=== PATIENT | male | born 1980 | race Caucasian/White ===

== ENCOUNTER 2019-06-09 00:01 | Emergency (ER) | payer MEDICARE, SELFPAY ==
[2019-06-09 00:02] VITALS: BP 140/94; PULSE 90; RESP 16; TEMP 36.6; O2SAT 100; BMI 23.5
--- NOTE | 2019-06-09 00:13 | ED_ITS ---
HPI - Headache General: Chief Complaint: Headache Stated Complaint: migraine/dental pain Time Seen by Provider: 06/09/19 00:13 History of Present Illness: HPI Narrative: Patient is a 38-year-old male who comes to the ED with a migraine. Patient has a past medical history of migraines. Patient describes this migraine like other past migraines. He has photophobia and the migraine is retro-orbital on the left eye. He rates it a 9.5 out of 10. He denies any other neurological symptoms such as numbness or tingling to extremities or any weakness to her extremities. Denies any vision changes. Associated symptoms: Deny chest pain, fever(s), nausea, rash or vomiting Review of Systems Const: Denies: fever, chills or fatigue Eyes: Denies: change in vision or eye discomfort ENMT: Reports: dental pain; Denies: throat pain, painful swallowing, nasal discharge or nasal congestion Card: Denies: chest pain, palpitations, edema, swelling of feet/ankles, shortness of breath on exertion or shortness of breath when lying down Resp: Denies: shortness of breath, productive cough or non-productive cough GI: Denies: abdominal pain, nausea, vomiting, diarrhea, constipation or blood in stool : Denies: flank pain, difficulty urinating, painful urination or blood in urine Musc: Denies: neck pain, back pain or extremity swelling Skin/Breast: Denies: rash or new lesion Neuro: Reports: headache; Denies: numbness in extremities or weakness in extremities PFS ED PFSH: Social History Smoking and tobacco status: current every day smoker Physical Exam Narrative: EXAM NARRATIVE: Patient is a 38-year-old male who is lying in a dark room with his sunglasses on as I entered the room. Const: COMMON NORMALS: oriented x3 HENMT: COMMON NORMALS: normocephalic HEAD & SCALP: normocephalic MOUTH: oral and palatal mucosa normal TEETH & GINGIVA: Yes other (pt has a broken tooth. tooth #15) THROAT: posterior oropharynx normal and uvula midline Eye: COMMON NORMALS: PERRL and EOMs intact bilaterally PUPIL: Yes PERRL Neck/C-Spine: COMMON NORMALS: supple GENERAL: Yes normal visual inspection Resp: COMMON NORMALS: normal respiratory effort, no retractions, no use of accessory muscles and clear to auscultation bilaterally AUSCULTATION: clear to auscultation bilaterally Cardio: COMMON NORMALS: regular rate, regular rhythm, S1 normal heart sound, S2 normal heart sound, no gallops, no clicks, no murmurs and peripheral pulses 2+ throughout RATE: regular rate RHYTHM: regular rhythm HEART SOUNDS: S1 normal and S2 normal PERIPHERAL PULSES: pulses 2+ throughout GI: COMMON NORMALS: normal to inspection, nondistended, normoactive bowel sounds, soft to palpation, non-tender and no masses PALPATION: Yes soft : COMMON NORMALS: Yes no CVA tenderness BLADDER/KIDNEY EXAM: Yes no CVA tenderness Back/Pelvis: COMMON NORMALS: no CVA tenderness Extremity: COMMON NORMALS: normal to inspection Neuro: COMMON NORMALS: oriented x3, CN's II-XII intact bilaterally, moves all extremities, no focal motor deficits and no sensory deficits noted SENSORY EXAM: Yes extremities (intact) MOTOR EXAM: strength 5/5 throughout Skin: COMMON NORMALS: no rashes or lesions noted GENERAL SKIN EXAM: no rashes or lesions noted and dry skin Course Reevaluation(s): Reevaluation #1: After treatment here in the ED patient's migraine was rated at a 2 out of 10. Initial migraine rating before treatment was 9.5 out of 10. Time: 00:50 Vital Signs: Vital signs: Vital Signs Temperature 97.8 F 06/09/19 00:02 Pulse Rate 62 06/09/19 01:28 Respiratory Rate 16 06/09/19 00:02 Blood Pressure 111/73 06/09/19 01:28 Pulse Oximetry 100 06/09/19 01:28 Discharge Plan Discharge Patient Disposition: Home, Self-Care Clinical Impression: Toothache Migraine Qualifiers: Migraine type: without aura Status migrainosus presence: without status migrainosus Intractability: not intractable Qualified Code(s): G43.009 - Migraine without aura, not intractable, without status migrainosus Condition: Stable Prescriptions: No Action No Known Home Medications RF: 0 Discharge Orders: Discharge Order (Routine); Ordered 06/09/19 Ordered By: Jose Vasquez Referrals: Tomas Shaikh DO [Primary Care Provider] - Discharge Diet: Regular Discharge Activity: Resume usual activity Patient Instructions: Migraine Headache (ED) Activity Restrictions/Additional Instructions: Follow-up with your PCP in 7 days for reevaluation. Drink plenty fluids and stay hydrated. You can take [id number] ibuprofen or Tylenol for any headaches. Also call the dentist to set up an appointment for toothache. 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
[2019-06-09] MEDS: dexamethasone 10 mg/mL INJ IVP (00:28)
[2019-06-09] MEDS: ketorolac 30 mg/mL INJ IVP (00:29)
[2019-06-09] MEDS: sodium chloride 0.9% 1,000 ML 999 ML IV (00:29)
[2019-06-09] MEDS: diphenhydrAMINE 50 mg/mL SDV 1mL 25 MG IVP (00:29)
[2019-06-09 01:28] VITALS: BP 111/73; PULSE 62; O2SAT 100
== END 2019-06-09 01:28 | disposition home or self-care (01) ==
PROVIDERS: Emergency Provider Physician Assistant; Family Provider Family Medicine; PCP Family Medicine
DX: K08.89 Other specified disorders of teeth and supporting structures (principal); G43.009 Migraine without aura, not intractable, without status migrainosus
CPT/HCPCS: 12345; 96360; 96361; 96374; 96375; 99283; J1100; J1200; J1885; J7030

== ENCOUNTER 2021-03-05 09:00 | Emergency (ER) | payer MEDICARE, SELFPAY ==
[2021-03-05 09:07] VITALS: BP 135/78; PULSE 79; RESP 18; TEMP 36.8; O2SAT 98; BMI 27.2
[2021-03-05 09:30] VITALS: BP 116/62; PULSE 74; RESP 16; TEMP 36.8; O2SAT 99
--- NOTE | 2021-03-05 09:38 | CT_ITS ---
WS: [id number] CT ABDOMEN PELVIS TECHNIQUE: Contrast-enhanced CT of the abdomen and pelvis with coronal and sagittal reformatted image s. CLINICAL INFORMATION: right lower quadrant abdominal pain COMPARISON: None. DLP: 1550.[address] scans at [facility] use at least one of these dose optimization techniques: automated e xposure control; mA and/or kV adjustment per patient size (includes targeted exams where dose is matc hed to clinical indication); or iterative reconstruction. FINDINGS: Diffuse fatty infiltration liver. Normal spleen. Normal GE junction. Lung bases are well aerated.Norm al portal vein and splenic vein. Normal pancreas. Adrenal glands are normal. Normal renal parenchymal enhancement. Small bilateral renal cysts. No hydronephrosis in either kidney. Normal caliber abdominal aorta. Normal sigmoid colon. No evidence of high-grade small or large bowel obstruction. Normal appendix in the right lower quadrant. No evidence of acute appendicitis. No abdominal or pelvi c lymphadenopathy. Mild lumbar curve. CT/CT abdomen pelvis w con* [id number] IMPRESSION: 1. Normal air-filled appendix in the right lower quadrant. No evidence of acut e appendicitis. 2. Mild diffuse fatty infiltration liver. 3. Normal bilateral renal parenchymal enhancement. Small bilateral renal cysts . No hydronephrosis. 4. Normal caliber abdominal aorta. 5. No other significant findings.
--- NOTE | 2021-03-05 09:48 | ED_ITS ---
HPI - Abdominal Pain General: Chief Complaint: Abdominal Pain Stated Complaint: ABD PAIN INCREASING IN SEVERITY Time Seen by Provider: 03/05/21 09:14 Source: patient Mode of arrival: ambulatory Limitations: no limitations History of Present Illness: HPI narrative: 40-year-old male presents emergency department chief complaint of having right sided lower abdominal pain radiating to the back and to the left side been ongoing progressively worse for 1 week patient reports he did have episodes of diarrhea prior now is constipated reports no urinary frequency reports no prior history of any trauma or injury reporting the pain is intermittent at times unrelated activity exertion eating. MD elicited complaint: abdominal pain and flank pain Onset (ago): day(s) (7) Location: RLQ Severity: severe Radiation: LLQ Migration to: periumbilical Exacerbating factors: nothing Associated Symptoms: Reports anorexia and nausea; Denies chills, fever(s) and vomiting Review of Systems General: Reports: 10 or more systems reviewed and unremarkable except in HPI and below Const: Denies: fever(s), chills, fatigue or malaise Eyes: Denies: change in vision or blurry vision Card: Denies: chest pain or palpitations Resp: Denies: dyspnea or productive cough GI: Reports: abdominal pain and nausea; Denies: vomiting : Reports: flank pain Musc: Denies: extremity pain or extremity swelling Skin/Breast: Denies: rash or pruritus Neuro: Denies: headache(s) Psych: Denies: anxiety or depression [place]/Lymph: Denies: easy bleeding All/Imm: Denies: urticaria, throat swelling or facial swelling PFS ED PFSH: Social History Smoking and tobacco status: current every day smoker Physical Exam Narrative: EXAM NARRATIVE: Patient appears in mild distress due to pain otherwise unremarkable nontoxic appearing Const: COMMON NORMALS: no acute distress, patient oriented x3 and healthy appearing HENMT: COMMON NORMALS: normocephalic and atraumatic HEAD & SCALP: normocephalic and atraumatic Eye: COMMON NORMALS: Equal, round and reactive pupils present and EOMs intact bilaterally PUPIL: Yes Equal, round and reactive pupils present Neck/C-Spine: COMMON NORMALS: full ROM, supple and no JVD Lymph: LYMPHATIC: no lymphadenopathy noted Chest: COMMONS NORMALS: normal inspection of the chest and normal palpation of entire chest wall Resp: COMMON NORMALS: normal respiratory effort, No retractions and clear to auscultation bilaterally EFFORT & INSPECTION: Yes able to speak in complete sentences and Yes symmetric chest movement AUSCULTATION: clear to auscultation bilaterally Cardio: COMMON NORMALS: no JVD, regular rate and regular rhythm RATE: regular rate RHYTHM: regular rhythm GI: COMMON NORMALS: Normal to inspection, nondistended, normoactive bowel sounds present, Soft to palpation and non-tender PALPATION: Yes Soft to palpation and Yes Tenderness to palpation present (GI) (Positive McBurney's point sign appreciated exam) Details: RLQ : COMMON NORMALS: Yes no CVA tenderness BLADDER/KIDNEY EXAM: Yes no CVA tenderness Back/Pelvis: COMMON NORMALS: no CVA tenderness Extremity: COMMON NORMALS: normal to inspection and full ROM Neuro: COMMON NORMALS: patient oriented x3, CN's II-XII intact bilaterally, moves all extremities and no focal motor deficits Psych: COMMON NORMALS: mental status grossly normal, Normal thought process present, cooperative and normal affect THOUGHT PROCESS: Normal thought process present Skin: COMMON NORMALS: no rashes or lesions noted GENERAL SKIN EXAM: no rashes or lesions noted Course ED course: Due to the patient's symptoms and condition lab work imaging will be obtained patient had an IV started morphine Zofran provided for his as sociated symptoms will continue to follow. Vital Signs: Vital signs: Vital Signs Temperature 98.3 F 03/05/21 09:30 Pulse Rate 64 03/05/21 11:07 Respiratory Rate 14 03/05/21 11:07 Blood Pressure 103/66 03/05/21 11:07 Pulse Oximetry 99 03/05/21 11:07 MDM - Abdominal Pain MDM Narrative: Medical decision making narrative: Lab work and imaging came back unremarkable patient was provided his medications for his associated symptoms at this time did not see any obvious additional need for work-up. Advise any further follow-up primary care doctor in 2 to 3 days patient advised return the interim if any of his symptoms persist or worse. Differential Diagnosis: Differential diagnosis abdominal pain: Likely abdominal pain, acute appendicitis and calculus of kidney Medical Records: Attestation: I reviewed the patient's medical records. Lab Data: Attestation: I reviewed the patient's lab results. Labs: Lab Results 03/05/21 03/05/21 03/05/21 09:50 09:50 10:25 WBC 11.5 10^3/uL H 10 ^3/uL (4.0-10.0) RBC 5.12 10^6/uL 10^6 /uL (4.1-5.3) Hgb 16.4 g/dL g/dL (11.7-16.6) Hct 47.1 % % (42.0-52.0) MCV 92.0 fl fl (80-94) MCH 32.0 pg pg (28.0-34.0) MCHC 34.8 g/dL g/dL (30.0-36.0) RDW 12.7 % % (12.1-15.1) Plt Count 337 10^3/cmm 10^3 /cmm (130-400) MPV 10.1 fL fL (7.4-10.4) Neut % (Auto) 59.2 % % Lymph % (Auto) 30.1 % % [place] % (Auto) 6.3 % % Eos % (Auto) 3.4 % % Baso % (Auto) 0.7 % % Neut # (Auto) 6.79 10^3/uL 10^3 /uL (1.8-7.7) Lymph # (Auto) 3.5 10^3/uL 10^3/ uL (0.8-4.8) [place] # (Auto) 0.7 10^3/uL 10^3/ uL (0.2-0.9) Eos # (Auto) 0.4 10^3/uL 10^3/ uL (0.0-0.8) Baso # (Auto) 0.1 10^3/uL 10^3/ uL (0.0-0.1) Nucleated RBC % (a uto) 0 % % Nucleated RBCs # 0.0 /100WBC /100W BC Sodium 137 mmol/L mmol/L (136-145) Potassium 4.6 mmol/L mmol/L (3.5-5.1) Chloride 103 mmol/L mmol/L (98-107) Carbon Dioxide 27 mmol/L mmol/L (22-29) Anion Gap 11.6 (5-19) BUN 12 mg/dL mg/dL (6-20) Creatinine 0.9 mg/dL mg/dL (0.7-1.2) GFR Calculation 94.4 mL/min mL/mi n (90-130) Glucose 93 mg/dL mg/dL (65-115) Calculated Osmolal ity 283 mOsm/kg L mOs m/kg (285-295) Calcium 8.7 mg/dL mg/dL (8.5-10.5) Total Bilirubin 0.4 mg/dL mg/dL (0.15-1.2) AST 13 U/L U/L (0-40) ALT 19 U/L U/L (0-41) Alkaline Phosphata se 90 IU/L IU/L (40-130) C-Reactive Protein 0.9 mg/L mg/L (0.0-4.9) Total Protein 6.6 g/dL g/dL (6.6-8.7) Albumin 4.2 g/dL g/dL (3.5-5.2) Globulin 2.4 g/dL g/dL (1.3-4.6) Lipase 24 U/L U/L (13-60) Urine Color Yellow (Yellow) Urine Appearance Clear (CLEAR) Urine pH 8 H (5-7) Ur Specific Gravit y 1.010 (1.005-1.030) Urine Protein Neg (Negative) Urine Glucose (UA) Norm (Normal) Urine Ketones Negative (Negative) Urine Blood Neg (Negative) Urine Nitrate Negative (Negative) Urine Bilirubin Neg (Negative) Prot Sulfosalicyli c Acd Negative (Negative) Urine Urobilinogen Norm mg/dL mg/dL (Negative) Ur Leukocyte Chasity ase Negative (Negative) Discharge Plan Discharge Patient Disposition: Home Clinical Impression: Abdominal pain Condition: Stable Prescriptions: New tramadol 50 mg tablet 50 mg PO Q8H PRN (Reason: pain) Qty: 20 RF: 0 Zofran 4 mg tablet 4 mg PO DAILY Qty: 15 RF: 0 No Action ibuprofen 200 mg Tablet 800 mg PO Q8H PRN (Reason: Pain) RF: 0 Total Burn Diet Tabs 1 tab PO DAILY RF: 0 Discharge Orders: Discharge ED (Routine); Ordered 03/05/21 Ordered By: Ramses Iverson Discharge Diet: Advance as tolerated Discharge Activity: Resume usual activity Patient Instructions: Abdominal Pain - Adult, Abdominal Pain (ED), Opioid Safety Activity Restrictions/Additional Instructions: Please follow-up with your primary care doctor in 2 to 3 days, take medication as prescribed and return the interim if any of her symptoms persist or worse. Coding Level of Care Code ED Director Of Medical Services for Angelo Fwd Exam Comprehensive
[2021-03-05 10:01] LABS: Basophils # 0.1 10^3/uL (0.0-0.1); Basophils % 0.7 %; Eosinophils # 0.4 10^3/uL (0.0-0.8); Eosinophils % 3.4 %; Hematocrit 47.1 % (42.0-52.0); Hemoglobin 16.4 g/dL (11.7-16.6); Lymphocytes # 3.5 10^3/uL (0.8-4.8); Lymphocytes % 30.1 %; Mean Corpuscular HGB Conc 34.8 g/dL (30.0-36.0); Mean Platelet Volume 10.1 fL (7.4-10.4); Monocytes # 0.7 10^3/uL (0.2-0.9); Monocytes % 6.3 %; Neutrophils # 6.79 10^3/uL (1.8-7.7); Neutrophils % 59.2 %; Nucleated Red Blood Cells % 0 %; Platelet Count 337 10^3/cmm (130-400); Red Blood Count 5.12 10^6/uL (4.1-5.3); Red Cell Distribution Width 12.7 % (12.1-15.1); White Blood Count 11.5 10^3/uL (4.0-10.0)
[2021-03-05] MEDS: iohexol 300 mg/mL 100 mL Btl IV (10:13)
[2021-03-05 10:21] VITALS: RESP 16; O2SAT 99
[2021-03-05] MEDS: morphine 4 mg/mL SDV 1 mL IVP (10:21)
[2021-03-05] MEDS: sodium chloride 0.9% 1,000 ML 999 ML IV (10:21)
[2021-03-05] MEDS: ondansetron 2 mg/ML SDV 2 mL 4 MG IVP (10:21)
[2021-03-05 10:30] LABS: Add Urine Microscopic? NO; Charge for UA Resulting for Rev
[2021-03-05 10:30] LABS: Alanine Aminotransferase 19 U/L (0-41); Albumin Level 4.2 g/dL (3.5-5.2); Alkaline Phosphatase 90 IU/L (40-130); Anion Gap 11.6 (5-19); Aspartate Amino Transferase 13 U/L (0-40); Blood Urea Nitrogen 12 mg/dL (6-20); C Reactive Protein 0.9 mg/L (0.0-4.9); Calcium 8.7 mg/dL (8.5-10.5); Carbon Dioxide 27 mmol/L (22-29); Chloride 103 mmol/L (98-107); Globulin 2.4 g/dL (1.3-4.6); Glomerular Filtration Rate 94.4 mL/min (90-130); Glucose 93 mg/dL (65-115); Lipase 24 U/L (13-60); Osmolality Calculated 283 mOsm/kg (285-295); Potassium 4.6 mmol/L (3.5-5.1); Sodium 137 mmol/L (136-145); Total Bilirubin 0.4 mg/dL (0.15-1.2); Total Protein 6.6 g/dL (6.6-8.7)
[2021-03-05 10:43] LABS: Urine Appearance Clear (CLEAR); Urine Color Yellow (Yellow); pH Urine 8 (5-7)
[2021-03-05 10:45] LABS: Bilirubin Urine Neg (Negative); Blood Urine Neg (Negative); Glucose Urine UA Norm (Normal); Ketones Urine Negative (Negative); Leukocyte Esterase Urine Negative (Negative); Nitrate Urine Negative (Negative); Protein Urine Neg (Negative); Sulfosalicylic Acid Urine Negative (Negative); Urobilinogen Urine Norm (Negative)
[2021-03-05 11:07] VITALS: BP 103/66; PULSE 64; RESP 14; O2SAT 99
[2021-03-05 12:28] VITALS: BP 119/70; PULSE 68; RESP 16; O2SAT 96
== END 2021-03-05 12:29 | disposition home or self-care (01) ==
PROVIDERS: Emergency Provider Emergency Medicine
DX: R10.30 Lower abdominal pain, unspecified (principal); F17.210 Nicotine dependence, cigarettes, uncomplicated
CPT/HCPCS: 74177; 80053; 81003; 83690; 85025; 86140; 96361; 96374; 96375; 99283; J2270; J2405; J7030; Q9967

== ENCOUNTER 2021-10-02 20:31 | Emergency (ER) | payer MEDICARE, SELFPAY ==
[2021-10-02 20:42] VITALS: BP 137/90; PULSE 100; RESP 16; TEMP 37.1; O2SAT 96
[2021-10-02 21:45] VITALS: BP 133/42; PULSE 130; RESP 22; O2SAT 100
[2021-10-02 22:45] VITALS: BP 134/63; PULSE 80; RESP 18; O2SAT 96
--- NOTE | 2021-10-02 23:09 | ED_ITS ---
Documented by User: JESE Mcfarlane 10/03/21 19:50 HPI - Abdominal Pain General: Chief Complaint: Abdominal Pain Stated Complaint: abdominal pain/constipation/bloody stool Time Seen by Provider: 10/02/21 22:56 History of Present Illness: Patient is a 40-year-old male comes to the ED with abdominal pain. Symptoms started approximately 1 week ago. He endorses having episodes of right lower quadrant abdominal pain. He currently is having pain that he describes as a achy pain that he rates a 5 out of 10. He endorses having some nausea but denies any emesis. The first 5 days of abdominal pain patient had diarrhea. The diarrhea cleared up but now patient is having very hard formed stools daily for the last 2 days. He endorses having to strain a l ot to get stool out. He also has had a little bit of red blood on toilet paper when he wipes today. Endorses a little dysuria. Denies any fevers or hematuria. Denies any history of abdominal surgeries. Associated Symptoms: Reports constipation, diarrhea, dysuria and nausea; Denies chills, fever(s), hematochezia, hematuria and vomiting Review of Systems Const: Denies: fever(s), chills or fatigue Eyes: Denies: change in vision or eye discomfort ENMT: Denies: throat pain, odynophagia, nasal discharge or nasal congestion Card: Denies: chest pain, palpitations, edema, swelling of feet/ankles, dyspnea on exertion or orthopnea Resp: Denies: dyspnea, productive cough or non-productive cough GI: Reports: abdominal pain, nausea, diarrhea and constipation; Denies: vomiting or hematochezia : Reports: dysuria; Denies: flank pain, difficulty urinating or hematuria Musc: Denies: neck pain, back pain or extremity swelling Skin/Breast: Denies: rash or new lesions Neuro: Denies: headache(s), numbness in extremities or weakness in extremities PFS ED PFSH: Medical History (Updated 10/03/21 @ 03:28 by JESE Mcfarlane) No pertinent past medical history Surgical History (Updated 10/02/21 @ 23:12 by JESE Mcfarlane) No pertinent past surgical history Social History Smoking and tobacco status: current every day smoker Physical Exam Const: COMMON NORMALS: patient oriented x3 and alert GENERAL APPEARANCE: cooperative HENMT: COMMON NORMALS: normocephalic HEAD & SCALP: normocephalic MOUTH: Normal oral and palatal mucosa present THROAT: posterior oropharynx normal and uvula midline Neck/C-Spine: COMMON NORMALS: supple GENERAL: Yes normal visual inspection Resp: COMMON NORMALS: normal respiratory effort, No retractions, No use of accessory muscles and clear to auscultation bilaterally AUSCULTATION: clear to auscultation bilaterally Cardio: COMMON NORMALS: regular rate, regular rhythm, S1 normal heart sound present, S2 normal heart sound present, No gallops present (Cardio), No clicks present (Cardio), No murmurs present (Cardio) and Peripheral pulses 2+ throughout RATE: regular rate RHYTHM: regular rhythm HEART SOUNDS: S1 normal heart sound present and S2 normal heart sound present PERIPHERAL PULSES: Peripheral pulses 2+ throughout GI: COMMON NORMALS: Normal to inspection, nondistended, normoactive bowel sounds present, Soft to palpation and no masses PALPATION: Yes Soft to palpation and Yes Tenderness to palpation present (GI) Details: RLQ and RUQ : COMMON NORMALS: Yes no CVA tenderness BLADDER/KIDNEY EXAM: Yes no CVA tenderness Back/Pelvis: COMMON NORMALS: no CVA tenderness Extremity: COMMON NORMALS: normal to inspection Neuro: COMMON NORMALS: patient oriented x3 SENSORIUM/ORIENTATION: Yes alert GAIT: Yes Normal gait present Skin: GENERAL SKIN EXAM: dry skin Course Vital Signs: Vital signs: Vital Signs Temperature 98.7 F 10/02/21 20:42 Pulse Rate 79 10/03/21 03:52 Respiratory Rate 14 10/03/21 03:52 Blood Pressure 125/83 10/03/21 03:52 Pulse Oximetry 95 10/03/21 03:52 MDM - Abdominal Pain Medical Decision Making Patient is a 40-year-old male comes to the ED with right-sided abdominal pain. Patient appears nontoxic in no acute distress or pain. He has some generalized right sided abdominal tenderness. Rest of exam is benign. Vitals are stable. Patient is white blood cell count 11.2, CRP of 10 and the rest the labs are unremarkable. CT of abdomen pelvis showed some cholelithiasis without cholecystitis and no other acute findings. Ultrasound of the gallbladder showed some gallbladder sludge with mild wall thickening but no signs of acute cholecystitis. Patient's pain and nausea was controlled with IV fluids, morphine and Zofran here in the ED. Patient stable for discharge home. Patient was diagnosed with abdominal pain and discharged home with a prescription for Zofran and hydrocodone for pain. Told to follow-up with the PCP in the next we ek for reevaluation. Return to ED precautions given. Patient understood and agreed with plan. Lab Data I reviewed the patient's lab results. : 10/02/21 20:12 10/02/21 20:12 Labs/Radiology: Radiology Impressions Abdomen/Pelvis CT 10/03/21 00:15 IMPRESSION: 1. Cholelithiasis without cholecystitis. 2. Multiple nonobstructing bilateral renal pelvis stones. 3. Nonspecific borderline enlarged mesenteric lymph nodes. Gallbladder Ultrasound 10/03/21 01:43 IMPRESSION: Gallbladder Sludge balls and mild wall thickening without changes of acute cholecystitis. Laboratory Results WBC 11.2 10^3/uL (4.0-10.0) H 10/02/21 20:12 RBC 5.10 10^6/uL (4.1-5.3) 10/02/21 20:12 Hgb 16.0 g/dL (11.7-16.6) 10/02/21 20:12 Hct 45.9 % (42.0-52.0) 10/02/21 20:12 MCV 90.0 fl (80-94) 10/02/21 20:12 MCH 31.4 pg (28.0-34.0) 10/02/21 20:12 MCHC 34.9 g/dL (30.0-36.0) 10/02/21 20:12 RDW 12.8 % (12.1-15.1) 10/02/21 20:12 Plt Count 332 10^3/cmm (130-400) 10/02/21 20:12 MPV 10.9 fL (7.4-10.4) H 10/02/21 20:12 Neut % (Auto) 47.2 % 10/02/21 20:12 Lymph % (Auto) 30.4 % 10/02/21 20:12 [place] % (Auto) 8.5 % 10/02/21 20:12 Eos % (Auto) 12.6 % 10/02/21 20:12 Baso % (Auto) 0.9 % 10/02/21 20:12 Neut # (Auto) 5.30 10^3/uL (1.8-7.7) 10/02/21 20:12 Lymph # (Auto) 3.4 10^3/uL (0.8-4.8) 10/02/21 20:12 [place] # (Auto) 1.0 10^3/uL (0.2-0.9) H 10/02/21 20:12 Eos # (Auto) 1.4 10^3/uL (0.0-0.8) H 10/02/21 20:12 Baso # (Auto) 0.1 10^3/uL (0.0-0.1) 10/02/21 20:12 Nucleated RBC % (auto) 0 % 10/02/21 20:12 Nucleated RBCs # 0.0 /100WBC 10/02/21 20:12 Sodium 140 mmol/L (136-145) 10/02/21 20:12 Potassium 3.7 mmol/L (3.5-5.1) 10/02/21 20:12 Chloride 105 mmol/L (98-107) 10/02/21 20:12 Carbon Dioxide 23 mmol/L (22-29) 10/02/21 20:12 Anion Gap 15.7 (5-19) 10/02/21 20:12 BUN 12 mg/dL (6-20) 10/02/21 20:12 Creatinine 1.0 mg/dL (0.7-1.2) 10/02/21 20:12 GFR Calculation 83.6 mL/min (90-130) L 10/02/21 20:12 Glucose 107 mg/dL (65-115) 10/02/21 20:12 Calculated Osmolality 290 mOsm/kg (285-295) 10/02/21 20:12 Calcium 9.1 mg/dL (8.5-10.5) 10/02/21 20:12 Total Bilirubin 0.2 mg/dL (0.15-1.2) 10/02/21 20:12 AST 21 U/L (0-40) 10/02/21 20:12 ALT 51 U/L (0-41) H 10/02/21 20:12 Alkaline Phosphatase 112 IU/L (40-130) 10/02/21 20:12 C-Reactive Protein 10.7 mg/L (0.0-4.9) H 10/02/21 20:12 Total Protein 7.2 g/dL (6.6-8.7) 10/02/21 20:12 Albumin 4.3 g/dL (3.5-5.2) 10/02/21 20:12 Globulin 2.9 g/dL (1.3-4.6) 10/02/21 20:12 Lipase 25 U/L (13-60) 10/02/21 20:12 Urine Color Yellow (Yellow) 10/03/21 00:40 Urine Appearance Clear (CLEAR) 10/03/21 00:40 Urine pH 5 (5-7) 10/03/21 00:40 Ur Specific [place] 1.025 (1.005-1.030) 10/03/21 00:40 Urine Protein Neg (Negative) 10/03/21 00:40 Urine Glucose (UA) Norm (Normal) 10/03/21 00:40 Urine Ketones Negative (Negative) 10/03/21 00:40 Urine Blood Neg (Negative) 10/03/21 00:40 Urine Nitrate Negative (Negative) 10/03/21 00:40 Urine Bilirubin Neg (Negative) 10/03/21 00:40 Urine Urobilinogen Norm mg/dL (Negative) 10/03/21 00:40 Ur Leukocyte Esterase Negative (Negative) 10/03/21 00:40 Discharge Plan Discharge Patient Disposition: Home Clinical Impression: Abdominal pain Qualifiers: Abdominal location: unspecified location Qualified Code(s): R10.9 - Unspecified abdominal pain Condition: Stable Prescriptions: New ondansetron 4 mg tablet,disintegrating 4 mg PO Q8H PRN (Reason: nausea and vomiting) Qty: 20 0RF No Action ibuprofen 200 mg Tablet 800 mg PO Q8H PRN (Reason: Pain) 0RF Total Burn Diet Tabs 1 tab PO DAILY 0RF tramadol 50 mg tablet 50 mg PO Q8H PRN (Reason: pain) Qty: 20 0RF Zofran 4 mg tablet 4 mg PO DAILY Qty: 15 0RF Discharge Orders: Discharge ED (Routine); Ordered 10/03/21 Ordered By: Jose Vasquez Discharge Diet: Advance as tolerated and Clear Liquid Discharge Activity: Increase activity as tolerated Patient Instructions: Abdominal Pain (ED), Opioid Safety Activity Restrictions/Additional Instructions: Follow-up with medical provider as directed in the next 5 to 7 days reevaluatio n. Have clear liquid diet for the next 24 hours and slowly advance diet as tolerated. Take medications as prescribed. Return to the ER or your medical provider if condition worsens. Please read and understand discharge instructions. Thank you for choosing [facility] for your healthcare needs today. Please realize this is an emergency room and that we are providing you with a medical screening exam and this may not be complete and all inclusive of all the testing and or work up that you may need to determine your ailment or severity of your illness. It is very important that you follow up as instructed or that you return to the Emergency Department should you have concerns or if your condition changes or worsens in any way. Coding Level of Care Code ED Keg Raiser for Chg Fwd Exam Comprehensive Documented by User: Burak Olmos, 10/05/21 15:19 HPI - Abdominal Pain General: Chief Complaint: Abdominal Pain Stated Complaint: abdominal pain/constipation/bloody stool Time Seen by Provider: 10/02/21 22:56 [facility] ED PFSH: Medical History (Updated 10/03/21 @ 03:28 by JESE Mcfarlane) No pertinent past medical history Surgical History (Updated 10/02/21 @ 23:12 by JESE Mcfarlane) No pertinent past surgical history Social History Smoking and tobacco status: current every day smoker Course Vital Signs: Vital signs: Vital Signs Temperature 98.7 F 10/02/21 20:42 Pulse Rate 79 10/03/21 03:52 Respiratory Rate 14 10/03/21 03:52 Blood Pressure 125/83 10/03/21 03:52 Pulse Oximetry 95 10/03/21 03:52 MDM - Abdominal Pain Medical Decision Making Patient is a 40-year-old male comes to the ED with right-sided abdominal pain. Patient appears nontoxic in no acute distress or pain. He has some generalized right sided abdominal tenderness. Rest of exam is benign. Vitals are stable. Patient is white blood cell count 11.2, CRP of 10 and the rest the labs are unremarkable. CT of abdomen pelvis showed some cholelithiasis without cholecystitis and no other acute findings. Ultrasound of the gallbladder showed some gallbladder sludge with mild wall thickening but no signs of acute cholecystitis. Patient's pain and nausea was controlled with IV fluids, morphine and Zofran here in the ED. Patient stable for discharge home. Patient was diagnosed with abdominal pain and discharged home with a prescription for Zofran and hydrocodone for pain. Told to follow-up with the PCP in the next week for reevaluation. Return to ED precautions given. Patient understood and agreed with plan. This patient was originally seen by Mr. Christina PA-C. I agree with his history, evaluation, and treatment. Lab Data : 10/02/21 20:12 10/02/21 20:12 Labs/Radiology: Radiology Impressions Abdomen/Pelvis CT 10/03/21 00:15 IMPRESSION: 1. Cholelithiasis without cholecystitis. 2. Multiple nonobstructing bilateral renal pelvis stones. 3. Nonspecific borderline enlarged mesenteric lymph nodes. Gallbladder Ultrasound 10/03/21 01:43 IMPRESSION: Gallbladder Sludge balls and mild wall thickening without changes of acute cholecystitis. Laboratory Results WBC 11.2 10^3/uL (4.0-10.0) H 10/02/21 20:12 RBC 5.10 10^6/uL (4.1-5.3) 10/02/21 20:12 Hgb 16.0 g/dL (11.7-16.6) 10/02/21 20:12 Hct 45.9 % (42.0-52.0) 10/02/21 20:12 MCV 90.0 fl (80-94) 10/02/21 20:12 MCH 31.4 pg (28.0-34.0) 10/02/21 20:12 MCHC 34.9 g/dL (30.0-36.0) 10/02/21 20:12 RDW 12.8 % (12.1-15.1) 10/02/21 20:12 Plt Count 332 10^3/cmm (130-400) 10/02/21 20:12 MPV 10.9 fL (7.4-10.4) H 10/02/21 20:12 Neut % (Auto) 47.2 % 10/02/21 20:12 Lymph % (Auto) 30.4 % 10/02/21 20:12 [place] % (Auto) 8.5 % 10/02/21 20:12 Eos % (Auto) 12.6 % 10/02/21 20:12 Baso % (Auto) 0.9 % 10/02/21 20:12 Neut # (Auto) 5.30 10^3/uL (1.8-7.7) 10/02/21 20:12 Lymph # (Auto) 3.4 10^3/uL (0.8-4.8) 10/02/21 20:12 [place] # (Auto) 1.0 10^3/uL (0.2-0.9) H 10/02/21 20:12 Eos # (Auto) 1.4 10^3/uL (0.0-0.8) H 10/02/21 20:12 Baso # (Auto) 0.1 10^3/uL (0.0-0.1) 10/02/21 20:12 Nucleated RBC % (auto) 0 % 10/02/21 20:12 Nucleated RBCs # 0.0 /100WBC 10/02/21 20:12 Sodium 140 mmol/L (136-145) 10/02/21 20:12 Potassium 3.7 mmol/L (3.5-5.1) 10/02/21 20:12 Chloride 105 mmol/L (98-107) 10/02/21 20:12 Carbon Dioxide 23 mmol/L (22-29) 10/02/21 20:12 Anion Gap 15.7 (5-19) 10/02/21 20:12 BUN 12 mg/dL (6-20) 10/02/21 20:12 Creatinine 1.0 mg/dL (0.7-1.2) 10/02/21 20:12 GFR Calculation 83.6 mL/min (90-130) L 10/02/21 20:12 Glucose 107 mg/dL (65-115) 10/02/21 20:12 Calculated Osmolality 290 mOsm/kg (285-295) 10/02/21 20:12 Calcium 9.1 mg/dL (8.5-10.5) 10/02/21 20:12 Total Bilirubin 0.2 mg/dL (0.15-1.2) 10/02/21 20:12 AST 21 U/L (0-40) 10/02/21 20:12 ALT 51 U/L (0-41) H 10/02/21 20:12 Alkaline Phosphatase 112 IU/L (40-130) 10/02/21 20:12 C-Reactive Protein 10.7 mg/L (0.0-4.9) H 10/02/21 20:12 Total Protein 7.2 g/dL (6.6-8.7) 10/02/21 20:12 Albumin 4.3 g/dL (3.5-5.2) 10/02/21 20:12 Globulin 2.9 g/dL (1.3-4.6) 10/02/21 20:12 Lipase 25 U/L (13-60) 10/02/21 20:12 Urine Color Yellow (Yellow) 10/03/21 00:40 Urine Appearance Clear (CLEAR) 10/03/21 00:40 Urine pH 5 (5-7) 10/03/21 00:40 Ur Specific [place] 1.025 (1.005-1.030) 10/03/21 00:40 Urine Protein Neg (Negative) 10/03/21 00:40 Urine Glucose (UA) Norm (Normal) 10/03/21 00:40 Urine Ketones Negative (Negative) 10/03/21 00:40 Urine Blood Neg (Negative) 10/03/21 00:40 Urine Nitrate Negative (Negative) 10/03/21 00:40 Urine Bilirubin Neg (Negative) 10/03/21 00:40 Urine Urobilinogen Norm mg/dL (Negative) 10/03/21 00:40 Ur Leukocyte Esterase Negative (Negative) 10/03/21 00:40 Discharge Plan Discharge Patient Disposition: Home Clinical Impression: Abdominal pain Qualifiers: Abdominal location: unspecified location Qualified Code(s): R10.9 - Unspecified abdominal pain Condition: Stable Prescriptions: New ondansetron 4 mg tablet,disintegrating 4 mg PO Q8H PRN (Reason: nausea and vomiting) Qty: 20 0RF No Action ibuprofen 200 mg Tablet 800 mg PO Q8H PRN (Reason: Pain) 0RF Total Burn Diet Tabs 1 tab PO DAILY 0RF tramadol 50 mg tablet 50 mg PO Q8H PRN (Reason: pain) Qty: 20 0RF Zofran 4 mg tablet 4 mg PO DAILY Qty: 15 0RF Discharge Orders: Discharge ED (Routine); Ordered 10/03/21 Ordered By: Jose Vasquez Discharge Diet: Advance as tolerated and Clear Liquid Discharge Activity: Increase activity as tolerated Patient Instructions: Abdominal Pain (ED), Opioid Safety Activity Restrictions/Additional Instructions: Follow-up with medical provider as directed in the next 5 to 7 days reevaluation. Have clear liquid diet for the next 24 hours and slowly advance diet as tolerated. Take medications as prescribed. Return to the ER or your medical provider if condition worsens. Please read and understand discharge instructions. Thank you for choosing [facility] for your healthcare needs today. Please realize this is an emergency room and that we are providing you with a medical screening exam and this may not be complete and all inclusive of all the testing and or work up that you may need to determine your ailment or severity of your illness. It is very important that you follow up as instructed or that you return to the Emergency Department should you have concerns or if your condition changes or worsens in any way. Coding Level of Care Code ED Keg Raiser for Angelo Hansen Exam Comprehensive
[2021-10-02] MEDS: ondansetron 2 mg/ML SDV 2 mL 4 MG IVP (23:20)
[2021-10-02 23:24] LABS: Basophils # 0.1 10^3/uL (0.0-0.1); Basophils % 0.9 %; Eosinophils # 1.4 10^3/uL (0.0-0.8); Eosinophils % 12.6 %; Hematocrit 45.9 % (42.0-52.0); Lymphocytes # 3.4 10^3/uL (0.8-4.8); Lymphocytes % 30.4 %; Mean Corpuscular HGB Conc 34.9 g/dL (30.0-36.0); Mean Corpuscular Hemoglobin 31.4 pg (28.0-34.0); Mean Platelet Volume 10.9 fL (7.4-10.4); Monocytes % 8.5 %; Neutrophils % 47.2 %; Nucleated Red Blood Cells % 0 %; Platelet Count 332 10^3/cmm (130-400); Red Cell Distribution Width 12.8 % (12.1-15.1); White Blood Count 11.2 10^3/uL (4.0-10.0)
[2021-10-02 23:37] LABS: Alanine Aminotransferase 51 U/L (0-41); Albumin Level 4.3 g/dL (3.5-5.2); Alkaline Phosphatase 112 IU/L (40-130); Anion Gap 15.7 (5-19); Aspartate Amino Transferase 21 U/L (0-40); Blood Urea Nitrogen 12 mg/dL (6-20); C Reactive Protein 10.7 mg/L (0.0-4.9); Calcium 9.1 mg/dL (8.5-10.5); Carbon Dioxide 23 mmol/L (22-29); Chloride 105 mmol/L (98-107); Globulin 2.9 g/dL (1.3-4.6); Glomerular Filtration Rate 83.6 mL/min (90-130); Glucose 107 mg/dL (65-115); Lipase 25 U/L (13-60); Osmolality Calculated 290 mOsm/kg (285-295); Potassium 3.7 mmol/L (3.5-5.1); Sodium 140 mmol/L (136-145); Total Bilirubin 0.2 mg/dL (0.15-1.2); Total Protein 7.2 g/dL (6.6-8.7)
[2021-10-03] VITALS: BP 95/53; PULSE 74; RESP 16; O2SAT 95
--- NOTE | 2021-10-03 00:15 | CTR_ITS ---
PROCEDURE INFORMATION: Exam: CT Abdomen And Pelvis Without Contrast Exam date and time: 10/03/2021 12:30 AM Age: 40 years old Clinical indication: Abdominal tenderness and constipation and other: Bloody stools; Additional info: Right sided abdominal pain, nausea, constipation TECHNIQUE: Imaging protocol: Computed tomography of the abdomen and pelvis without contrast. Radiation optimization: All CT scans at this facility use at least one of these dose optimization techniques: automated exposure control; mA and/or kV adjustment per patient size (includes targeted exams where dose is matched to clinical indication); or iterative reconstruction. COMPARISON: CT abdomen pelvis w con* [id number] 03/05/2021 10:10 AM RADIATION DOSE METRICS: Total DLP (mGy-cm): 1671.2 FINDINGS: Lungs: The lung bases are clear. No effusion Liver: Normal. No mass. Gallbladder and bile ducts: There is cholelithiasis without wall thickening or pericholecystic fluid. Pancreas: Normal. No ductal dilation. Spleen: Normal. No splenomegaly. Adrenal glands: Normal. No mass. Kidneys and ureters: Multiple nonobstructing left renal stones, largest measures 4 mm. 2 mm nonobstructing right renal pelvis stone. Stomach and bowel: Unremarkable. No obstruction. No mucosal thickening. Appendix: No evidence of appendicitis. Intraperitoneal space: Unremarkable. No free air. No significant fluid collection. Vasculature: Unremarkable. No abdominal aortic aneurysm. Lymph nodes: Nonspecific borderline enlarged mesenteric lymph nodes. Urinary bladder: Unremarkable as visualized. Reproductive: Unremarkable as visualized. Bones/joints: Unremarkable. No acute fracture. Soft tissues: Unremarkable. CT/CT abdomen pelvis con [id number] IMPRESSION: 1. Cholelithiasis without cholecystitis. 2. Multiple nonobstructing bilateral renal pelvis stones. 3. Nonspecific borderline enlarged mesenteric lymph nodes.
[2021-10-03 00:49] LABS: Add Urine Microscopic? NO; Charge for UA Resulting for Rev
[2021-10-03 00:59] LABS: Bilirubin Urine Neg (Negative); Blood Urine Neg (Negative); Glucose Urine UA Norm (Normal); Ketones Urine Negative (Negative); Leukocyte Esterase Urine Negative (Negative); Nitrate Urine Negative (Negative); Protein Urine Neg (Negative); Specific Gravity, Urine 1.025 (1.005-1.030); Urine Appearance Clear (CLEAR); Urine Color Yellow (Yellow); Urobilinogen Urine Norm (Negative); pH Urine 5 (5-7)
[2021-10-03 01:00] VITALS: BP 112/74; PULSE 82; RESP 16; O2SAT 96
--- NOTE | 2021-10-03 01:43 | USR_ITS ---
PROCEDURE INFORMATION: Exam: US Abdomen, Limited; Right Upper Quadrant Exam date and time: 10/03/2021 2:50 AM Age: 40 years old Clinical indication: Abdominal pain; Additional info: Ruq pain and nausea TECHNIQUE: Imaging protocol: Real time ultrasound of the abdomen with image documentation. Limited exam focused on the right upper quadrant. COMPARISON: CT abdomen pelvis wo con [id number] 10/03/2021 12:30 AM FINDINGS: Liver: Normal. No masses. Gallbladder: Sludge balls are present in the gallbladder. There is mild gallbladder wall thickening. No pericholecystic fluid. Biliary ducts: Common bile duct diameter is 4 mm. Pancreas: Visualized portions of the pancreas are normal. Right kidney: Normal. No mass. No hydronephrosis. US/US gall bladder [id number] IMPRESSION: Gallbladder Sludge balls and mild wall thickening without changes of acute cholecystitis.
[2021-10-03 01:54] VITALS: RESP 18; O2SAT 94
[2021-10-03] MEDS: morphine 4 mg/mL SDV 1 mL IVP (01:54)
[2021-10-03 03:30] VITALS: BP 125/83; PULSE 79; RESP 14; O2SAT 95
[2021-10-03 03:52] VITALS: BP 125/83; PULSE 79; RESP 14; O2SAT 95
--- NOTE | 2021-10-03 06:48 | PC.NURSE ---
Hydrocodone/ apap 7.5/325 x 1 tab sent home with patient prior to discharge.
== END 2021-10-03 03:54 | disposition home or self-care (01) ==
PROVIDERS: Emergency Provider Physician Assistant
DX: R10.9 Unspecified abdominal pain (principal); F17.210 Nicotine dependence, cigarettes, uncomplicated
CPT/HCPCS: 74176; 76705; 80053; 81003; 83690; 85025; 86140; 96374; 96375; 99284; J2270; J2405

== ENCOUNTER → 2021-11-30 15:11 | Outpatient (BNVA) | payer MEDICARE, SELFPAY | PROVIDERS: Visit Provider Surgery | DX: K80.20 Calculus of gallbladder without cholecystitis without obstruction (principal) | CPT/HCPCS: 99203 ==

== ENCOUNTER 2021-12-29 07:24 | Day surgery (SDC) | payer MEDICARE, SELFPAY ==
[2021-12-29] VITALS (14 sets, daily range): BP systolic 126–153; BP diastolic 81–95; PULSE 78–100; RESP 14–23; TEMP 36.4–37; O2SAT 94–100
[2021-12-29] MEDS: acetaminophen 1,000 MG/100 ML PIGGYBACK 400 MG IV (08:00)
[2021-12-29] MEDS: sodium chloride 0.9% 1,000 ML 30 ML IV (08:00)
--- NOTE | 2021-12-29 08:43 | W.PM.OPSUD ---
Surgery/Procedure H&P Update DATE OF PROCEDURE: December 29, 2021 DATE H&P PERFORMED: 11/30/21 H&P UPDATE INFORMATION: I have reviewed H&P completed within last 30 days, I have examined patient prior to procedure and No changes to prior documentation PREOP DIAGNOSIS: Symptomatic cholelithiasis PRIMARY INDICATION FOR PROCEDURE: The same PLANNED PROCEDURE: Operation Date: 12/29/21 08:55 Proposed Procedures p [place] catherine [place] 95103,K82.9(Not Applicable) - Zion Deal MD
--- NOTE | 2021-12-29 08:45 | ANES.PREANE2 ---
Pre-Anesthetic Assessment Height/Weight: Height 1.78 m Weight 90.718 kg Temp Pulse Resp BP Pulse Ox O2 Del Method 97.8 F 98 18 129/82 97 12/29/21 07:30 12/29/21 07:30 12/29/21 07:30 12/29/21 07:30 12/29/21 07:30 12/29/21 07:44 Preop Diagnosis: Symptomatic cholelithiasis Operation Date: 12/29/21 08:55 Proposed Procedures p lap catherine possible [place] [id number],K82.9(Not Applicable) - Zion Deal MD Familial anesthetic complications: None Was Beta Pricilla taken within 24 hours: N/A Was Clonidine taken within 24 hours: N/A Last intake: Intake Last Liquid Date 12/28/21 Last Liquid Time 21:00 Last Solid Date 12/28/21 Last Solid Time 21:00 Social Tobacco and No alcohol Exam alert, oriented x 3, clear to auscultation bilaterally and regular rate & rhythm Airway Mallampati: Class IV Dentition: chipped Comments: Comments: poor dentition, receding jawline, but thyromental distance greater than 3 fingerbreadths Anesthetic Plan ASA status: 1 Anesthesia: General Risk of > 500 ml blood loss (7ml/kg in children): No Medications/Allergies Home Medications Medication Instructions Recorded Confirmed Last Taken Type No Known Home Medications 12/28/21 12/28/21 Unknown History Allergies Allergy/AdvReac Type Severity Reaction Status Date / Time aspirin Allergy Unknown Verified 12/29/21 07:41 latex Allergy ALGY-Hives Verified 12/29/21 07:41 Penicillins Allergy ALGY-Anaphy Verified 12/29/21 07:41 laxis Current Medications Generic Name Dose Route Start Last Admin Trade Name Freq PRN Reason Stop Dose Admin Sodium Chloride 1,000 mls @ 30 mls/hr 12/29/21 08:00 12/29/21 08:00 Sodium Chloride 0.9% IV 12/30/21 07:59 30 mls/hr .Q24H JUSTINE Administration PFSH Anesthesia Medical History No pertinent past medical history Surgical History No pertinent past surgical history Social History Smoking and tobacco status: current every day smoker Data Anesthesia Cardiac Studies: No Data to Display
[2021-12-29] MEDS: ciprofloxacin 400 MG/200 ML PREMIX 200 MG IV (08:55)
--- NOTE | 2021-12-29 10:14 | PM.OP ---
Operative Report Date of procedure: December 29, 2021 Pre-op diagnosis: Preop Diagnosis Symptomatic cholelithiasis Post-op diagnosis: Chronic cholecystitis Procedure done: Laparoscopic cholecystectomy Implants: Surgicel at the gallbladder Surgeon: Zion Deal MD Generator Mechanic: Surgical jan Barnard Circulating nurse Maria De Jesus Chase Anesthesia: General (CONTINUING EDUCATION INSTRUCTOR Constantine) Estimated blood loss (mL): 15 IV fluids (mL): 700 Procedure: Patient was identified in the holding area and taken back to the operative suite, placed in supine position intubated by anesthesia . Time-out was done verifying the patient's name/date of /planned procedure and destination after the procedure, all were in agreement. SCDs confirmed to be functioning, preoperative antibiotics administered per protocol, and beta monroe protocol was confirmed. Patient was appropriately secured to the table, footboard was applied to the OR table, before prep and drape anesthesia was asked to tilt the table back and forth to make sure that the patient is appropriately secured and she was. Prep and drape of the abdomen was done under the usual sterile technique, followed by that supraumbilical skin incision,skin incision was done by a 15 blade knife, and stay sutures were applied to the fascia and Blanchard trocar technique was used to enter the abdominal without injuring any abdominal viscera, started by low flow gas insufflation followed by a high flow, started with a 10 mm laparoscope and under direct vision there was no evidence of any injuries, the scope then switched to a 30? ,10 millimeter scope and under direct visualization 5 millimeter trocar was inserted in the epigastric region followed by two 5 mm trocars were inserted in the right upper quadrant that was done after injection of local lidocaine 2% at all incision sites. Gallbladder showed chronic cholecystitis and mild fatty Liver Patient was then positioned in the head up and tilted to the left. Ratcheted forceps were introduced into the lateral most 5mm port and was applied unto the fundus of the gallbladder cephalad and using Bullet forceps the infundibulum of the gallbladder was retracted laterally. Using [place] forceps then L-hook cautery to dissect the peritoneum overlying the Calot's triangle which was then opened medially and laterally until the cystic duct and the cystic artery were skeletonized. Dissection was carried along the body of the gallbladder and after ensuring critical view of safety was identfied. Cystic duct and cystic artery where seen connected to the gallbladder. Clips were applied on the cystic duct towards the common bile duct 1 towards the gallbladder then divided is in sharp scissors, 2 clips were then applied onto the cystic artery and 1 towards the gallbladder and divided by sharp scissors. Additional traversing vessel was clipped and divided Dissection was then carried along of the gallbladder from the gallbladder fossa using cautery as well as sharp dissection with heat energy. The gallbladder then was dissected out from the gallbladder fossa totally , cholecystectomy was then achieved and was placed in an Endo Catch bag and then retrieved from the Blanchard trocar site under direct visualization using a 5 mm 30? scope through the epigastric trocar, specimen was then passed to the circulating nurse to go for permanent pathology,irrigation and hemostasis was done to the gallbladder fossa after hemostasis was secured and pieces of Surgicel was placed at the gallbladder fossa., final survey laparoscopy was done that showed no injuries. Suction irrigation was obtained The supraumbilical fascial defect was then closed using interrupted number one PDS sutures using a fascial closure device ;Mcihael Heller under direct visualization following that Gas was allowed to deflate,Trocars were then taken out under direct vision there was no evidence of bleeding. Specimen was passed to the circulating nurse for permanent pathology. No drains were placed and the supraumbilical incision as well as all trocar sites were closed by 3/0 Vicryl followed by 4-0 Monocryl to approximate the skin edges of the incisions , dressing was applied in the form of surical glue and the patient patient got extubated and was taken to recovery area in a stable condition. Count of sponges,needles and instruments were completed at the end of the procedure I was present for the whole entire procedure.
[2021-12-29] MEDS: fentaNYL 50 mcg/mL INJ 2mL IVP (10:44)
[2021-12-29] MEDS: HYDROcodone-acetaminophen 5-325 mg Tablet 1 TAB PO (11:33)
--- NOTE | 2021-12-29 14:50 | ANE.PACU2 ---
Inpatient post-anesthesia follow up: Airway intact: Yes Vital signs: Temperature 98.6 F Pulse Rate 78 Respiratory Rate 18 Blood Pressure 129/90 Pulse Oximetry 97 Oxygen Delivery Me thod Room Air Oxygen Flow Rate 10 Fraction of Inspir ed Oxygen Hydration adequate: Yes Nausea and vomiting: No Pain level: 1 Mental status: Baseline
== END 2021-12-29 12:19 | disposition home or self-care (01) ==
PROVIDERS: Visit Provider Surgery
PROC: 0FT44ZZ Resection of Gallbladder, Percutaneous Endoscopic Approach (ICD-10-PCS; CPT 47562; principal; 2021-12-29 08:55)
DX: K80.10 Calculus of gallbladder with chronic cholecystitis without obstruction (principal); F17.210 Nicotine dependence, cigarettes, uncomplicated
CPT/HCPCS: 47562; 88304; J0744; J1100; J1170; J2250; J2370; J2405; J2704; J2710; J3010; J3490; J7030

== ENCOUNTER 2022-01-08 18:04 | Emergency (ER) | payer MEDICARE, SELFPAY ==
[2022-01-08 18:52] VITALS: BP 137/82; PULSE 95; RESP 18; TEMP 36.8; O2SAT 98; BMI 28.7
--- NOTE | 2022-01-08 19:08 | W.ED.GENADLT ---
HPI - General Adult General: Chief complaint: General Medical Stated complaint: Stiches Are Infected Time Seen by Provider: 01/08/22 19:04 History of Present Illness: 41-year-old male patient comes in today for concerns of drainage from a central abdominal incision line from a gallbladder surgery. Patient denies any pain or fever. Patient reports he had yawned and during stretching he felt some fluid run down from the wound. Patient reports no pain or fever and appears nontoxic. Review of Systems Const: Denies: fever(s) Skin/Breast: Reports: changing lesions PFSH ED PFSH: Medical History No pertinent past medical history Surgical History No pertinent past surgical history Social History Smoking and tobacco status: current every day smoker Physical Exam Const: COMMON NORMALS: alert HENMT: COMMON NORMALS: normocephalic HEAD & SCALP: normocephalic Neck/C-Spine: COMMON NORMALS: full ROM Resp: COMMON NORMALS: normal respiratory effort and clear to auscultation bilaterally AUSCULTATION: clear to auscultation bilaterally Cardio: COMMON NORMALS: regular rate and regular rhythm RATE: regular rate RHYTHM: regular rhythm GI: COMMON NORMALS: Soft to palpation and non-tender PALPATION: Yes Soft to palpation OTHER: Small surgical wound incisions to the abdominal wall. No significant redness or tenderness noted to sites. No active draining or bleeding is noted. Extremity: COMMON NORMALS: no pedal edema Neuro: SENSORIUM/ORIENTATION: Yes alert Skin: LESIONS: lesion noted (Healing surgical wounds.) Course Vital Signs: Vital signs: Vital Signs Temperature 98.2 F 01/08/22 18:52 Pulse Rate 95 01/08/22 18:52 Respiratory Rate 18 01/08/22 18:52 Blood Pressure 137/82 01/08/22 18:52 Pulse Oximetry 98 01/08/22 18:52 Oxygen Delivery Me thod 01/08/22 18:52 MDM - General Adult Medical Decision Making 41-year-old male patient comes in today for concerns of drainage from a surgical wound. On exam we note multiple small incisions approximately 5 of them to the abdominal wall that appear to be well-healing. Minimal redness is noted to the sites. No active drainage is noted at the site. Vital signs are normal. Differential diagnosis includes surgical wound infection, abscess, seroma, wound dehiscence. Exam was unremarkable. Recommended patient monitoring the site for further drainage and tenderness along with fever. Patient has appointment to follow-up with surgeon on Tuesday he should keep that appointment return to the ER for fever or increased abdominal pain. Patient reported understanding agreed to plan. Discharge Plan Discharge Patient Disposition: Home Clinical Impression: Drainage from surgical wound Condition: Stable Prescriptions: No Action ondansetron HCl 4 mg tablet 4 mg PO Q6H PRN (Reason: nausea and vomiting) Qty: 20 0RF hydrocodone-acetaminophen 5-325 mg tablet 1 tab PO Q6H PRN (Reason: pain) Qty: 28 0RF Discharge Orders: Discharge ED (Routine); Ordered 01/08/22 Ordered By: Kristian Muller Discharge Diet: Usual diet Patient Instructions: Opioid Safety Activity Restrictions/Additional Instructions: Continue routine care. Follow-up with surgeon on Tuesday at scheduled appointment. Return to ER for increased abdominal pain, fever greater than 100.4, or new concerns. Coding Level of Care Code ED Geriatrics Physician for Angelo Hansen
== END 2022-01-08 19:12 | disposition home or self-care (01) ==
PROVIDERS: Emergency Provider Nurse Practitioner Family
DX: L76.82 Other postprocedural complications of skin and subcutaneous tissue (principal); F17.210 Nicotine dependence, cigarettes, uncomplicated
CPT/HCPCS: 99283

== ENCOUNTER → 2022-01-11 09:27 | Outpatient (BNVA) | payer MEDICARE, SELFPAY | PROVIDERS: Visit Provider Surgery | DX: Z12.11 Encounter for screening for malignant neoplasm of colon (principal) | CPT/HCPCS: 99024 ==

== ENCOUNTER → 2022-01-25 14:58 | Outpatient (BNVA) | payer MEDICARE, SELFPAY | PROVIDERS: Visit Provider Surgery | DX: Z09 Encounter for follow-up examination after completed treatment for conditions other than malignant neoplasm (principal) | CPT/HCPCS: 99024 ==

== ENCOUNTER → 2022-02-17 15:50 | Outpatient (BNVA) | payer MEDICARE, SELFPAY | PROVIDERS: Visit Provider Surgery | DX: Z09 Encounter for follow-up examination after completed treatment for conditions other than malignant neoplasm (principal) | CPT/HCPCS: 99024 ==

== ENCOUNTER 2023-09-16 22:37 | Emergency (ER) | payer MEDICARE, SELFPAY ==
[2023-09-16 22:39] VITALS: BP 128/87; PULSE 100; RESP 14; TEMP 36.6; O2SAT 95
--- NOTE | 2023-09-16 22:50 | ED_ITS ---
HPI - Wound/Laceration General: Chief Complaint: Wound/Laceration Stated Complaint: cut thumb on left hand Time Seen by Provider: 09/16/23 22:38 Source: patient Mode of arrival: ambulatory Limitations: no limitations History of Present Illness: Patient is a 42-year-old male who presents to ED today with complaint of laceration to his left thumb that he sustained just prior to arrival after his dog accidentally locked him out of a semitruck and he was using a [employer] tool to attempt to unlock the car. He states a portion of the tool broke off and lacerated his left thumb. States tetanus is UTD. Onset (ago): hour(s) Extremity Location: Left: hand (L thumb) Place: home Patient tetanus UTD: Yes Context: accidental Associated symptoms: Reports no associated symptoms Review of Systems Musc: Reports: extremity pain Skin/Breast: Reports: other (laceration L thumb) Neuro: Denies: numbness in extremities or sensory changes [facility] ED PFSH: Medical History Cholelithiasis No pertinent past medical history Surgical History No pertinent past surgical history Social History Smoking and tobacco/nicotine status: current every day tobacco/nicotine user Physical Exam Const: COMMON NORMALS: no acute distress, no limitations, alert and well nourished Extremity: COMMON NORMALS: full ROM and capillary refill normal GENERAL: Yes normal exam except as noted LEFT UPPER EXTREMITY: Yes hand & digits (1.25cm laceration palmar pad L thumb; superficial) Left hand and digits: Yes palpation (no bony tenderness), Yes ROM (normal), Yes neurovascular exam (normal) and Yes tendon exam (normal) Neuro: COMMON NORMALS: moves all extremities, no focal motor deficits and no sensory deficits noted SENSORIUM/ORIENTATION: Yes alert Skin: TRAUMA: laceration Procedures Laceration Laceration 1: Site: hand (L thumb) Side (If applicable): left Size (cm): 1.25 Description: linear Depth: simple, single layer Local Anesthetic: lidocaine 1% (digital block) Amount of anesthesia used (mL): 2.0 Pre-repair: wound explored and irrigated extensively Skin layer closed with: nylon Size (cm): 4-0 Number of sutures: 2 Technique: simple, interrupted Course Vital Signs: Vital signs: Vital Signs Temperature 97.9 F 09/16/23 22:39 Pulse Rate 100 09/16/23 22:39 Respiratory Rate 14 09/16/23 22:39 Blood Pressure 128/87 09/16/23 22:39 Pulse Oximetry 95 09/16/23 22:39 Oxygen Delivery Me thod Room Air 09/16/23 22:39 MDM - Wound/Laceration Medical Decision Making Wound was copiously irrigated and repaired as documented. No XR required. Tetanus is up-to-date. Wound care/infection precautions discussed. Differential Diagnosis Likely laceration No radiology studies performed this visit Discharge Plan Discharge Patient Disposition: Home Clinical Impression: Laceration of left thumb Qualifiers: Encounter type: initial encounter Damage to nail status: without damage Foreign body presence: without foreign body Qualified Code(s): S61.012A - Laceration without foreign body of left thumb without damage to nail, initial encounter Condition: Stable Prescriptions: No Action No Known Home Medications Discharge Orders: Discharge ED (Routine); Ordered 09/16/23 Ordered By: Anastasia Grigsby Patient Instructions: Care For Your Stitches (ED), Laceration (DC), Finger Laceration (ED) Activity Restrictions/Additional Instructions: Keep wound/laceration clean with warm soap and water twice daily. Monitor for signs of infection such as redness, swelling, increased pain, or drainage. Please seek medical re-evaluation if these occur. If you received sutures today these will need to be removed. The provider should have discussed with you the length of time until removal-7 DAYS. Coding Level of Care Code ED Non Licensed Nuclear Plant Operator for Angelo Hansen
[2023-09-16] MEDS: tetanus-dipt-pertussis 0.5 mL SDV IM (23:21)
[2023-09-16 23:26] VITALS: PULSE 80; RESP 16; O2SAT 98
== END 2023-09-16 23:27 | disposition home or self-care (01) ==
PROVIDERS: Emergency Provider Physician Assistant
DX: S61.012A Laceration without foreign body of left thumb without damage to nail, initial encounter (principal); Z72.0 Tobacco use; W26.8XXA Contact with other sharp object(s), not elsewhere classified, initial encounter; Z23 Encounter for immunization
CPT/HCPCS: 12001; 90471; 90715; 99283